=== PATIENT | female | born 1990 | race Caucasian/White ===

== ENCOUNTER 2018-03-14 04:54 | Day surgery (SDC) | payer OTHER ==
[2018-03-08 15:02] VITALS: BMI 29.2
[2018-03-14] MEDS ORDERED: LIDOCAINE 1%/EPI 1:100000 (20 ML MULTI DOSE VIAL) ONE (07:14)
[2018-03-14] MEDS ORDERED: BUPIVACAINE HCL/PF 0.5% (5MG/ML) 10 ML VIAL ONE (07:15)
[2018-03-14] MEDS ORDERED: PROPOFOL 20 ML ONE ×2 (07:57→08:29)
[2018-03-14] MEDS ORDERED: LIDOCAINE HCL/PF 2% SDV 5ML VIAL ONE (07:57)
[2018-03-14] MEDS ORDERED: MIDAZOLAM HCL 2 MG/2 ML SINGLE DOSE VIAL ONE (07:58)
[2018-03-14] MEDS ORDERED: LIDOCAINE HCL 2% (20ML MULTI-DOSE VIAL) NR ONE (08:05)
--- NOTE | 2018-03-14 08:10 | HP ---
Satellite [facility] - Chief Complaint Chief Complaint: LEFT FOOT MASS - Past Medical History Allergies/Adverse Reactions: Allergies Allergy/AdvReac Type Severity Reaction Status Date / Time Penicillins Allergy Verified 03/14/18 07:04 shellfish derived Allergy Verified 03/14/18 07:04 ...LMP: 02/17/18 - Current Medications Current Medications: Home Medications Medication Instructions Recorded Etonogestrel [Nexplanon] 68 mg TD ASDIR 03/14/18 Satellite Physical Exam - Physical Examination Vital Signs: Vital Signs Period Temp Pulse Resp BP Sys/Dewitt Pulse Ox Last 24 Hr 98.2 F 75 16 105/69 100 Extremities: Other (+ LEFT FOOT TRANSILLUMINATING DORSAL FOOT MASS) Satellite Impression/Plan - Impression/Plan Impression: LEFT FOOT GANGLION CYST Operative Procedure: LEFT FOOT GANGLION EXCISION Date to be Performed: 03/14/18
[2018-03-14] MEDS ORDERED: KETOROLAC TROMETHAMINE 30 MG/1 ML VIAL ONE (08:19)
[2018-03-14] MEDS ORDERED: ceFAZolin SODIUM 1 GM VIAL ONE (08:24)
[2018-03-14] MEDS ORDERED: LIDOCAINE HCL 2% (50ML VIAL) INF ONE (08:25)
[2018-03-14] MEDS ORDERED: LIDOCAINE HCL 1%, 10 MG/ML (20ML VIAL) ONE (08:29)
[2018-03-14] MEDS ORDERED: BUPIVACAINE HCL/PF 0.5% (5MG/ML) 10 ML VIAL IJ ONE (08:38)
--- NOTE | 2018-03-14 08:46 | OP ---
Operative Note - Note: Operative Date: 03/14/18 Pre-Operative Diagnosis: mass left foot(ganglion cyst) Operation: excision of left foot mass Post-Operative Diagnosis: Same as Pre-op Surgeon: Reggie Street Anesthesia: General Operative Report Dictated: Yes
[2018-03-14] MEDS ORDERED: oxyCODONE HCL 5 MG TABLET PO PRN (08:52)
[2018-03-14] MEDS ORDERED: ONDANSETRON 4 MG/2 ML VIAL IVPUSH PRN (08:52)
[2018-03-14] MEDS ORDERED: ACETAMINOPHEN 1000 MG/100 ML VIAL (NON FORMULARY) IVPB PRN (08:53)
[2018-03-14] MEDS ORDERED: LACTATED RINGERS SOLUTION 1,000 ML IV SCH (09:00)
--- NOTE | 2018-03-14 09:15 | OP ---
DATE OF OPERATION: 03/14/2018 PREOPERATIVE DIAGNOSIS: Left foot mass (ganglion cyst). POSTOPERATIVE DIAGNOSIS: Left foot mass (ganglion cyst). PROCEDURE: Excision, left foot mass. SURGICAL ATTENDING: Reggie Street MD ANESTHESIA: Local with sedation. COMPLICATIONS: None. CONDITION: Stable. DESCRIPTION OF PROCEDURE: Patient taken to the operating room March 14, 2018. IV sedation and Kefzol were administered prophylactically prior to the case. Left lower extremity was prepped and draped in the usual sterile fashion. The area around the dorsal mass was infiltrated with 1% lidocaine plain. A 4-cm longitudinal incision over the dorsal aspect of the ganglion cyst was incised. This was between the 4th and 5th metatarsal shafts. Sharp dissection was carried down to the cyst. Blunt dissection was used with Metzenbaum to get around the entire cyst. Its base was then found and transected and the entire mass was sent to pathology. The wound was irrigated. The skin was closed using 4-0 nylon horizontal mattress suture. Sterile pressure dressing was applied. Patient awakened from anesthesia and transferred to recovery in stable condition. No complications. Estimated blood loss negligible. Tourniquet time was approximately [address] M.D. [id number]
[2018-03-14 11:15] VITALS: TEMP 98.3
[2018-03-14 11:42] VITALS: BP 113/76; PULSE 88
--- NOTE | 2018-03-15 15:56 | PATH ---
Surgical Pathology Report Patient Name: RJ [facility]LS[facility]. Rec. #: [id number] /Age/Gender: 1990 (Age: 27) / F Account: [id number] Location: U SURGICAL Taken: 03/14/2018 Received: 03/14/2018 Reported: 03/15/2018 Physicians: Reggie Street M.D. Specimen(s) Received GANGLION CYST LEFT FOOT Clinical History Mass left foot Final Diagnosis GANGLION CYST, LEFT FOOT, EXCISION: CONSISTENT WITH GANGLION CYST. Electronically Signed Lucia Belcher M.D. Gross Description Received in formalin labeled "ganglion cyst left foot," is a 3.0 x 1.0 x 0.2 cm tejada-yellow, irregular cystic structure. Sectioning reveals clear mucinous material within the lumen. The specimen is entirely submitted in one cassette. /03/14/201803/14/2018
== END 2018-03-14 11:45 | disposition home or self-care (01) ==
LOC: JASU-SURG 04:54
PROVIDERS: ATTEND Orthopaedic Surgery
PROC: 0LBW0ZZ Excision of Left Foot Tendon, Open Approach (ICD-10-PCS; principal; 2018-03-14 08:00)
DX: M67.472 Ganglion, left ankle and foot (principal)
CPT/HCPCS: 84703; 88304-TC; 94760